=== PATIENT | female | born 1995 | race Hispanic/Latino ===

== ENCOUNTER 2018-11-02 18:30 | Emergency (ER) | payer OTHER ==
[2018-11-02 19:11] LABS: BASOPHILS % (AUTO) 0.5 % (0.0-5.0); EOSINOPHILS % (AUTO) 0.4 % (0.0-8.0); HEMATOCRIT 32.6 % (36-48); LYMPHOCYTES % (AUTO) 28.4 % (21.0-51.0); MEAN CORPUSCULAR HEMOGLOBIN 24.1 pg (27.0-33.0); MEAN CORPUSCULAR HGB CONC 32.6 g/dL (32.0-36.0); MEAN CORPUSCULAR VOLUME 73.9 fL (79-99); MONOCYTES % (AUTO) 6.3 % (3.0-13.0); NEUTROPHILS % (AUTO) 64.4 % (40.0-77.0); PLATELET COUNT (AUTO) 263 K/uL (130-400); RED BLOOD CELL COUNT(AUTO) 4.41 MIL/uL (4.00-5.50); RED CELL DISTRIBUTION WIDTH 19.5 % (11.0-15.5); WHITE BLOOD COUNT (AUTO) 7.8 K/uL (4.8-10.8)
[2018-11-02] MEDS ORDERED: METHYLERGONOVINE MALEATE 0.2 MG/1 ML ML IM NR (21:45)
== END 2018-11-02 22:16 | disposition home or self-care (01) ==
LOC: EDH 18:30
DX: O03.39 Incomplete spontaneous abortion with other complications (principal)
CPT/HCPCS: 36415; 76817; 84702; 85025; 86900; 86901; 99284; J2210

== ENCOUNTER 2018-11-07 19:59 | Observation (INO) | payer MEDICAID, OTHER ==
[~2018-11-07] VITALS: Ht 165.1 cm; Wt 103.3 kg
[2018-11-07 20:55] LABS: BASOPHILS % (AUTO) 1.1 % (0.0-5.0); EOSINOPHILS % (AUTO) 2.4 % (0.0-8.0); LYMPHOCYTES % (AUTO) 24.8 % (21.0-51.0); MEAN CORPUSCULAR HEMOGLOBIN 23.4 pg (27.0-33.0); MEAN CORPUSCULAR HGB CONC 31.5 g/dL (32.0-36.0); MEAN CORPUSCULAR VOLUME 74.4 fL (79-99); MONOCYTES % (AUTO) 4.8 % (3.0-13.0); NEUTROPHILS % (AUTO) 66.9 % (40.0-77.0); NUCLEATED RED BLOOD CELLS 0.1 % (0.0-0.19); PLATELET COUNT (AUTO) 248 K/uL (130-400); RED BLOOD CELL COUNT(AUTO) 2.82 MIL/uL (4.00-5.50); RED CELL DISTRIBUTION WIDTH 19.7 % (11.0-15.5); WHITE BLOOD COUNT (AUTO) 7.5 K/uL (4.8-10.8)
[2018-11-07 20:57] LABS: CREATININE 0.9 mg/dL (0.5-1.5); POTASSIUM 3.8 mmol/L (3.5-5.1)
[2018-11-07 21:01] LABS: HEMATOCRIT 20.9 % (36-48)
[2018-11-07 21:12] LABS: APPEARANCE,URINE SL CLOUDY (CLEAR); BILIRUBIN,URINE NEGATIVE (NEGATIVE); COLOR,URINE YELLOW (YELLOW); GLUCOSE, URINE (UA) NEGATIVE (NEGATIVE); KETONES,URINE NEGATIVE (NEGATIVE); LEUKOCYTE ESTERASE ,URINE NEGATIVE (NEGATIVE); NITRATE,URINE NEGATIVE (NEGATIVE); OCCULT BLOOD,URINE LARGE (NEGATIVE); PROTEIN,URINE NEGATIVE (NEGATIVE); UROBILINOGEN,URINE 0.2 mg/dL (0.2-1.0)
[2018-11-07 21:26] LABS: ALBUMIN 3.4 g/dL (3.5-5.0); BILIRUBIN,TOTAL 0.1 mg/dL (0.2-1.0); TOTAL PROTEIN, SERUM 6.9 g/dL (6.0-8.3)
[2018-11-07 21:51] LABS: AMORPHOUS SEDIMENT,UR Few /LPF (None Seen); BACTERIA,URINE Few /HPF (None Seen); RBC,URINE None Seen /HPF (0-1)
[2018-11-07] MEDS ORDERED: SODIUM CHLORIDE 0.9% 1000ML 1,000 ML IV SCH (22:30)
[2018-11-07] MEDS ORDERED: SODIUM CHLORIDE 0.9% 1000ML 1,000 ML IV ONE (23:26)
[2018-11-08] VITALS (12 sets, daily range): BP systolic 99–117; BP diastolic 43–69
[2018-11-08] MEDS ORDERED: SODIUM CHLORIDE 0.9% 1000ML 1,000 ML IV SCH (00:45)
[2018-11-08 09:53] LABS: HEMATOCRIT 24.2 % (36-48)
== END 2018-11-08 13:05 | disposition home or self-care (01) ==
LOC: EDH 19:59 → EDHIP 20:00 → UNDOADMOB 22:03 → WSH 23:45
PROVIDERS: ADMIT Specialist; ATTEND Specialist
DX: O03.9 Complete or unspecified spontaneous abortion without complication (principal); O99.013 Anemia complicating pregnancy, third trimester; D64.9 Anemia, unspecified; O46.91 Antepartum hemorrhage, unspecified, first trimester; Z3A.01 Less than 8 weeks gestation of pregnancy; Z23 Encounter for immunization; O26.811 Pregnancy related exhaustion and fatigue, first trimester; R42 Dizziness and giddiness
CPT/HCPCS: 36415 ×2; 36430; 76830; 80053; 81001; 84702; 85014; 85018; 85025; 86850; 86900; 86901; 86922 ×2; 99284; G0008; G0378 ×17; J7030; P9016 ×2; Q2038; Q2035

== ENCOUNTER 2020-10-05 00:30 | Observation (INO) | payer MEDICAID ==
[~2020-10-05] VITALS: Ht 167.6 cm; Wt 127.9 kg
[2020-10-05 00:44] VITALS: BP 154/95
[2020-10-05] MEDS ORDERED: LACTATED RINGERS 1000ML IV PRN (00:45)
[2020-10-05 01:02] LABS: APPEARANCE,URINE Cloudy (CLEAR); BILIRUBIN,URINE Negative (NEGATIVE); COLOR,URINE Yellow (YELLOW); GLUCOSE, URINE (UA) Negative (NEGATIVE); KETONES,URINE Negative (NEGATIVE); LEUKOCYTE ESTERASE ,URINE Moderate (NEGATIVE); NITRATE,URINE Negative (NEGATIVE); OCCULT BLOOD,URINE Negative (NEGATIVE); PH,URINE 6.5 (5.0-8.0); PROTEIN,URINE Trace mg/dL (NEGATIVE)
[2020-10-05 01:08] LABS: AMORPHOUS SEDIMENT,UR Rare /LPF (None Seen); BACTERIA,URINE Few /HPF (None Seen); CALCIUM OXALATE CRYSTALS,UR Few /LPF (None Seen); MUCUS,URINE Few LPF (None Seen); RBC,URINE None Seen /HPF (0-1); SQUAMOUS EPITHELIAL CELL,UR Moderate /HPF (0-2); YEAST,URINE BUDDING Rare /HPF (None Seen)
== END 2020-10-05 01:50 | disposition home or self-care (01) ==
LOC: EDH 00:30 → LDH 00:31
PROVIDERS: ADMIT Obstetrics & Gynecology; ATTEND Obstetrics & Gynecology
DX: O34.93 Maternal care for abnormality of pelvic organ, unspecified, third trimester (principal); N94.89 Other specified conditions associated with female genital organs and menstrual cycle; Z3A.38 38 weeks gestation of pregnancy
CPT/HCPCS: 81001; 87088; 99284; G0378

== ENCOUNTER 2020-10-27 04:55 | Observation (INO) | payer MEDICAID ==
[~2020-10-27] VITALS: Ht 167.6 cm; Wt 130.2 kg
[2020-10-27] MEDS ORDERED: LACTATED RINGERS 1000ML IV PRN (05:15)
[2020-10-27 05:39] LABS: APPEARANCE,URINE Clear (CLEAR); BILIRUBIN,URINE Negative (NEGATIVE); COLOR,URINE Yellow (YELLOW); GLUCOSE, URINE (UA) Negative (NEGATIVE); KETONES,URINE Negative (NEGATIVE); LEUKOCYTE ESTERASE ,URINE Negative (NEGATIVE); NITRATE,URINE Negative (NEGATIVE); OCCULT BLOOD,URINE Negative (NEGATIVE); PROTEIN,URINE Trace mg/dL (NEGATIVE)
[2020-10-27 06:09] VITALS: BP 124/58
[2020-10-27] MEDS ORDERED: PREN1TAB80 PO (06:13)
[2020-10-27 06:37] LABS: AMPHET/METH SCREEN,URINE NEGATIVE (NEGATIVE); BARBITURATE SCREEN, URINE NEGATIVE (NEGATIVE); BENZODIAZEPINES SCREEN,URINE NEGATIVE (NEGATIVE); CANNABINOID SCREEN,URINE NEGATIVE (NEGATIVE); COCAINE SCREEN,URINE NEGATIVE (NEGATIVE); OPIATE SCREEN,URINE NEGATIVE (NEGATIVE); PHENCYCLIDINE SCREEN,URINE NEGATIVE (NEGATIVE)
== END 2020-10-27 07:20 | disposition home or self-care (01) ==
LOC: EDH 04:55 → LDH 04:56
PROVIDERS: ADMIT Obstetrics & Gynecology; ATTEND Obstetrics & Gynecology
DX: O62.9 Abnormality of forces of labor, unspecified (principal); M54.5 Low back pain; Z3A.39 39 weeks gestation of pregnancy
CPT/HCPCS: 80305; 81003; 99284; G0378 ×2

== ENCOUNTER 2022-09-10 19:59 | Emergency (ER) | payer MEDICAID ==
[~2022-09-10] VITALS: Ht 165.1 cm; Wt 115.7 kg
[~2022-09-10 19:59] MED LIST: PREN1TAB80 PO
[2022-09-10] MEDS ORDERED: IBUPROFEN 600 MG TABLET ONE (21:16)
[2022-09-10] MEDS ORDERED: IBUPROFEN 600 MG TABLET PO ONE (21:30)
[2022-09-10] MEDS ORDERED: IBUP-2070 PO (22:10)
[2022-09-10] MEDS ORDERED: OSEL75 PO (22:10)
[2022-09-10] MEDS ORDERED: ONDA4TAB10 PO (22:10)
[2022-09-10 22:17] VITALS: BP 127/59
== END 2022-09-10 22:23 | disposition home or self-care (01) ==
LOC: EDH 19:59
DX: J11.1 Influenza due to unidentified influenza virus with other respiratory manifestations (principal); Z20.822 Contact with and (suspected) exposure to COVID-19
CPT/HCPCS: 99283; 87635; 87880; 87804 ×2; C9803

== ENCOUNTER 2023-05-29 19:53 | Emergency (ER) | payer MEDICAID ==
[~2023-05-29] VITALS: Ht 167.6 cm; Wt 118.8 kg
[~2023-05-29 19:53] MED LIST changes: +IBUP-2070 PO; +ONDA4TAB10 PO; +OSEL75 PO
[2023-05-29 19:57] VITALS: BP 125/84
[2023-05-29] MEDS ORDERED: IBUPROFEN 600 MG TABLET PO ONE (20:30)
[2023-05-29] MEDS ORDERED: ACETAMINOPHEN 500 MG TABLET PO ONE (20:30)
[2023-05-29] MEDS ORDERED: NIRM1TAB PO (21:02)
[2023-05-29] MEDS ORDERED: PSEU120T62 PO (21:02)
[2023-05-29] MEDS ORDERED: ONDA-104 PO (21:02)
[2023-05-29] MEDS ORDERED: ACET-66 PO (21:02)
[2023-05-29] MEDS ORDERED: IBUP-2070 PO (21:02)
[2023-05-29] MEDS ORDERED: PHEN118L19 PO (21:02)
== END 2023-05-29 21:07 | disposition home or self-care (01) ==
LOC: EDH 19:53
DX: U07.1 COVID-19 (principal); Z59.00 Homelessness unspecified; Z59.7 Insufficient social insurance and welfare support
CPT/HCPCS: 99283; 87635; 87880; 87804 ×2; C9803

== ENCOUNTER 2023-09-23 22:03 | Emergency (ER) | payer MEDICAID, OTHER ==
[~2023-09-23] VITALS: Ht 165.1 cm; Wt 119.7 kg
[~2023-09-23 22:03] MED LIST changes: +ACET-66 PO; +NIRM1TAB PO; +ONDA-104 PO; +PHEN118L19 PO; +PSEU120T62 PO
[2023-09-23 22:21] VITALS: BP 145/80; PULSE 90; RESP 20
[2023-09-23 23:24] LABS: BILIRUBIN,URINE NEGATIVE (NEGATIVE); COLOR,URINE YELLOW (YELLOW); GLUCOSE, URINE (UA) NEGATIVE (NEGATIVE); HCG,QUALITATIVE URINE POSITIVE (NEGATIVE); KETONES,URINE NEGATIVE (NEGATIVE); LEUKOCYTE ESTERASE ,URINE 75 Leu/uL (NEGATIVE); NITRATE,URINE NEGATIVE (NEGATIVE); OCCULT BLOOD,URINE NEGATIVE (NEGATIVE); PROTEIN,URINE 30 mg/dL (NEGATIVE)
[2023-09-23 23:25] LABS: ADD UA MICROSCOPIC YES
[2023-09-23 23:26] LABS: APPEARANCE,URINE CLOUDY (CLEAR)
[2023-09-23 23:34] LABS: BACTERIA,URINE RARE /HPF (None Seen); MUCUS,URINE MANY LPF (None Seen); SQUAMOUS EPITHELIAL CELL,UR MANY /HPF (0-2)
[2023-09-23 23:45] LABS: BASOPHILS # (AUTO) 0.02 K/uL (0.00-0.20); BASOPHILS % (AUTO) 0.2 % (0.0-5.0); EOSINOPHILS # (AUTO) 0.06 K/uL (0.00-0.70); EOSINOPHILS % (AUTO) 0.7 % (0.0-8.0); HEMATOCRIT 34.4 % (36-48); IMMATURE GRANULOCYTE ABSOLUTE 0.03 K/uL (0-1); LYMPHOCYTES # (AUTO) 1.9 K/uL (1.0-4.8); LYMPHOCYTES % (AUTO) 20.3 % (21.0-51.0); MEAN CORPUSCULAR HEMOGLOBIN 28.9 pg (27.0-33.0); MEAN CORPUSCULAR HGB CONC 33.7 g/dL (32.0-36.0); MEAN CORPUSCULAR VOLUME 85.8 fL (79-99); MONOCYTES # (AUTO) 0.7 K/uL (0.1-1.0); MONOCYTES % (AUTO) 7.6 % (3.0-13.0); NEUTROPHILS # (AUTO) 6.5 K/uL (1.8-7.7); NEUTROPHILS % (AUTO) 70.9 % (40.0-77.0); PLATELET COUNT (AUTO) 205 K/uL (130-400); RED BLOOD CELL COUNT(AUTO) 4.01 MIL/uL (4.00-5.50); RED CELL DISTRIBUTION WIDTH 13.3 % (11.0-15.5); WHITE BLOOD COUNT (AUTO) 9.1 K/uL (4.8-10.8)
[2023-09-23 23:58] LABS: CREATININE 0.6 mg/dL (0.5-1.5); POTASSIUM 3.3 mmol/L (3.5-5.1)
[2023-09-24 00:25] LABS: ALBUMIN 3.1 g/dL (3.5-5.0); BILIRUBIN,TOTAL 0.2 mg/dL (0.2-1.0)
== END 2023-09-24 02:27 | disposition home or self-care (01) ==
LOC: EDH 22:03
DX: O26.892 Other specified pregnancy related conditions, second trimester (principal); R10.9 Unspecified abdominal pain; R10.2 Pelvic and perineal pain; Z79.899 Other long term (current) drug therapy; Z3A.16 16 weeks gestation of pregnancy
CPT/HCPCS: 36415; 76801; 80053; 81001; 81025; 84702; 85025; 87088

== ENCOUNTER 2024-01-03 22:10 | Observation (INO) | payer MEDICAID ==
[~2024-01-03] VITALS: Ht 167.6 cm; Wt 127.0 kg
[2024-01-03 22:13] VITALS: PULSE 94; RESP 18
[2024-01-03 22:31] LABS: BASOPHILS # (AUTO) 0.01 K/uL (0.00-0.20); BASOPHILS % (AUTO) 0.1 % (0.0-5.0); EOSINOPHILS # (AUTO) 0.06 K/uL (0.00-0.70); EOSINOPHILS % (AUTO) 0.5 % (0.0-8.0); HEMATOCRIT 30.9 % (36-48); IMMATURE GRANULOCYTE ABSOLUTE 0.04 K/uL (0-1); LYMPHOCYTES # (AUTO) 1.4 K/uL (1.0-4.8); LYMPHOCYTES % (AUTO) 12.5 % (21.0-51.0); MEAN CORPUSCULAR HGB CONC 33.7 g/dL (32.0-36.0); MEAN CORPUSCULAR VOLUME 83.3 fL (79-99); MONOCYTES # (AUTO) 0.7 K/uL (0.1-1.0); MONOCYTES % (AUTO) 5.9 % (3.0-13.0); NEUTROPHILS # (AUTO) 9.2 K/uL (1.8-7.7); NEUTROPHILS % (AUTO) 80.7 % (40.0-77.0); PLATELET COUNT (AUTO) 206 K/uL (130-400); RED BLOOD CELL COUNT(AUTO) 3.71 MIL/uL (4.00-5.50); RED CELL DISTRIBUTION WIDTH 14.4 % (11.0-15.5); WHITE BLOOD COUNT (AUTO) 11.5 K/uL (4.8-10.8)
[2024-01-03 22:41] LABS: CREATININE 0.7 mg/dL (0.5-1.5); POTASSIUM 4.2 mmol/L (3.5-5.1)
[2024-01-03 22:46] LABS: ALBUMIN 2.5 g/dL (3.5-5.0); BILIRUBIN,TOTAL 0.2 mg/dL (0.2-1.0); TOTAL PROTEIN, SERUM 6.7 g/dL (6.0-8.3)
[2024-01-03] MEDS: ONDANSETRON 4MG INJ IVP ONE (23:01)
[2024-01-04] MEDS: CEPHALEXIN 500 MG CAPSULE PO ONE (00:59)
[2024-01-04 04:20] VITALS: BP 128/78
== END 2024-01-04 09:03 | disposition home or self-care (01) ==
LOC: EDH 22:10 → LDH 22:11
PROVIDERS: ADMIT Obstetrics & Gynecology; ATTEND Obstetrics & Gynecology
DX: O9A.213 Injury, poisoning and certain other consequences of external causes complicating pregnancy, third trimester (principal); S00.93XA Contusion of unspecified part of head, initial encounter; O99.213 Obesity complicating pregnancy, third trimester; E66.9 Obesity, unspecified; Z3A.33 33 weeks gestation of pregnancy; Y04.0XXA Assault by unarmed brawl or fight, initial encounter; Y93.89 Activity, other specified; Y92.89 Other specified places as the place of occurrence of the external cause; Y99.0 Civilian activity done for income or pay
CPT/HCPCS: 96374; 99285; 80053; 85025; 36415; 70450; 72125; 70486; J2405; G0378 ×9